=== PATIENT | female | born 2000 | race Caucasian/White ===

== ENCOUNTER 2019-08-10 19:08 | Emergency (ER) | payer OTHER ==
[~2019-08-10] VITALS: Ht 149 cm; Wt 56.7 kg
[2019-08-10] MEDS ORDERED: LACTATED RINGERS 1,000 ML IV ONE (19:33)
[2019-08-10] MEDS ORDERED: fentaNYL INJECTION 100 MCG/2 ML AMP IVP STA ×2 (19:33→20:29)
[2019-08-10 19:40] LABS: BILIRUBIN,URINE NEGATIVE (NEGATIVE); CLARITY,URINE SL CLOUDY; COLOR,URINE YELLOW; GLUCOSE, URINE (UA) NEGATIVE (NEGATIVE); KETONES,URINE NEGATIVE (NEGATIVE); LEUKOCYTE ESTERASE ,URINE NEGATIVE (NEGATIVE); NITRITE,URINE NEGATIVE (NEGATIVE); PROTEIN,URINE NEGATIVE (NEGATIVE)
[2019-08-10 19:41] LABS: BASOPHILS % (AUTO) 0 % (0-10); EOSINOPHILS # (AUTO) 0.2 10^3/uL (0.0-0.3); EOSINOPHILS % (AUTO) 2 % (0-10); HEMATOCRIT 40 % (35-52); HEMOGLOBIN 13.3 G/DL (11.5-16.0); LYMPHOCYTES % (AUTO) 50 % (12-44); MEAN CORPUSCULAR HEMOGLOBIN 32 PG (25-34); MEAN CORPUSCULAR HGB CONC 33 G/DL (32-36); MEAN CORPUSCULAR VOLUME 96 FL (80-99); MONOCYTES # (AUTO) 0.6 X 10^3 (0.0-1.0); MONOCYTES % (AUTO) 6 % (0-12); NEUTROPHILS # (AUTO) 4.2 X 10^3 (1.8-7.8); NEUTROPHILS % (AUTO) 42 % (42-75); PLATELET COUNT 291 10^3/uL (130-400); RED CELL DISTRIBUTION WIDTH 11.7 % (10.0-14.5); WHITE BLOOD COUNT 9.9 10^3/uL (4.3-11.0)
[2019-08-10 19:46] LABS: BACTERIA,URINE TRACE /HPF; SQUAMOUS EPITHELIAL CELL,UR 0-2 /HPF
[2019-08-10 19:47] LABS: AMORPHOUS SEDIMENT,UR LARGE AMOR PHOSPHATE /LPF
[2019-08-10 19:52] LABS: ALANINE AMINOTRANSFERASE 25 U/L (0-55); ALBUMIN 5.3 GM/DL (3.2-4.5); ALKALINE PHOSPHATASE 80 U/L (40-136); AMYLASE 42 U/L (25-125); BILIRUBIN,TOTAL 0.3 MG/DL (0.1-1.0); BUN/CREATININE RATIO 20; CALCIUM 10.4 MG/DL (8.5-10.1); CARBON DIOXIDE 25 MMOL/L (21-32); CHLORIDE 104 MMOL/L (98-107); CREATININE SERUM 0.75 MG/DL (0.60-1.30); GFR ESTIMATED > 60; GLUCOSE 99 MG/DL (70-105); LIPASE 29 U/L (8-78); POTASSIUM 3.8 MMOL/L (3.6-5.0); SODIUM 141 MMOL/L (135-145); TOTAL PROTEIN 8.4 GM/DL (6.4-8.2)
--- NOTE | 2019-08-10 19:56 | ED Abdominal Pain ---
General Chief Complaint: Abdominal/GI Problems Stated Complaint: RT SIDE PAIN Nursing Triage Note: Patient ambulatory to triage room with complaint of right rib pain that began today. Patient denies any recent injuries and denies any cough. Patient states the pain began suddenly and hurts worse with taking a deep breath. Sepsis Screen: No Definite Risk Source of Information: Patient Exam Limitations: No Limitations History of Present Illness Date Seen by Provider: Aug 10, 2019 Time Seen by Provider: 19:34 Initial Comments Here with report of right upper quadrant abdominal pain that started after eating dinner tonight. States it hurts when she takes a deep breath. Pain has persisted since onset. Denies recent injuries. Denies nausea or vomiting. Timing/Duration: 1-3 Hours Severity/Quality: Moderate, Severe Location: RUQ Radiation: Chest (right low chest anterior) Activities at Onset: None Modifying Factors: Worsens With Eating Associated Symptoms: No Back Pain; Chest Pain; No Fever/Chills, No Nausea/Vomiting, No Shortness of Air, No Weakness Allergies and Home Medications Allergies Coded Allergies: No Known Drug Allergies (Unverified , 08/10/19) Patient Home Medication List Home Medication List Reviewed: Yes Review of Systems Review of Systems Constitutional: see HPI; No chills, No fever EENTM: No Symptoms Reported Respiratory: Denies Cough; Other (pain with deep breathing) Cardiovascular: See HPI; Denies Edema, Denies Lightheadedness Gastrointestinal: Abdominal Pain; Denies Constipated, Denies Diarrhea, Denies Nausea, Denies Vomiting Genitourinary: No Symptoms Reported Musculoskeletal: no symptoms reported Skin: no symptoms reported Psychiatric/Neurological: No Symptoms Reported All Other Systems Reviewed Negative Unless Noted: Yes Past Wkbqtbd-Zroiqu-Truemj Hx Past Med/Social Hx: Reviewed Nursing Past Med/Soc Hx Patient Social History Alcohol Use: Denies Use Recreational Drug Use: No Smoking Status: Never a Smoker 2nd Hand Smoke Exposure: No Recent Foreign Travel: No Contact w/Someone Who Travel: No Recent Infectious Disease Expo: No Recent Hopitalizations: No Physical Abuse: No Sexual Abuse: No Mistreated: No Fear: No Immunizations Up To Date PED Vaccines UTD: Yes Seasonal Allergies Seasonal Allergies: No Past Medical History Surgeries: No Respiratory: No Cardiac: No Neurological: No Last Menstrual Period: Jul 25, 2019 Genitourinary: No Gastrointestinal: No Musculoskeletal: No Endocrine: No HEENT: No Cancer: No Psychosocial: No Integumentary: No Family Medical History Reviewed Nursing Family Hx Physical Exam Vital Signs Vital Signs - First Documented 08/10/19 19:13 Temp 37.0 Pulse 76 Resp 24 B/P (MAP) 132/95 (107) Pulse Ox 100 O2 Delivery Room Air Capillary Refill : Less Than 3 Seconds Height/Weight/BMI Height: '" Weight: lbs. oz. kg; 25.00 BMI Method: General Appearance: WD/WN, no apparent distress HEENT: PERRL/EOMI, pharynx normal Neck: full range of motion, supple Respiratory: lungs clear, normal breath sounds Cardiovascular: regular rate, rhythm, no murmur Gastrointestinal: soft; No guarding, No rebound; tenderness (right upper quadrant) Extremities: non-tender, normal inspection Back: normal inspection, no CVA tenderness, no vertebral tenderness Neurologic/Psychiatric: alert, oriented x 3 Skin: normal color, warm/dry Progress/Results/Core Measures Results/Orders Lab Results Laboratory Tests Test 08/10/19 19:20 Range/Units White Blood Count 9.9 4.3-11.0 10^3/uL Red Blood Count 4.16 L 4.35-5.85 10^6/uL Hemoglobin 13.3 11.5-16.0 G/DL Hematocrit 40 35-52 % Mean Corpuscular Volume 96 80-99 FL Mean Corpuscular Hemoglobin 32 25-34 PG Mean Corpuscular Hemoglobin Concent 33 32-36 G/DL Red Cell Distribution Width 11.7 10.0-14.5 % Platelet Count 291 130-400 10^3/uL Mean Platelet Volume 10.0 7.4-10.4 FL Neutrophils (%) (Auto) 42 42-75 % Lymphocytes (%) (Auto) 50 H 12-44 % Monocytes (%) (Auto) 6 0-12 % Eosinophils (%) (Auto) 2 0-10 % Basophils (%) (Auto) 0 0-10 % Neutrophils # (Auto) 4.2 1.8-7.8 X 10^3 Lymphocytes # (Auto) 5.0 H 1.0-4.0 X 10^3 Monocytes # (Auto) 0.6 0.0-1.0 X 10^3 Eosinophils # (Auto) 0.2 0.0-0.3 10^3/uL Basophils # (Auto) 0.0 0.0-0.1 10^3/uL Urine Color YELLOW Urine Clarity SL CLOUDY Urine pH 7.0 5-9 Urine Specific [place] 1.025 H 1.016-1.022 Urine Protein NEGATIVE NEGATIVE Urine Glucose (UA) NEGATIVE NEGATIVE Urine Ketones NEGATIVE NEGATIVE Urine Nitrite NEGATIVE NEGATIVE Urine Bilirubin NEGATIVE NEGATIVE Urine Urobilinogen 0.2 < = 1.0 MG/DL Urine Leukocyte Esterase NEGATIVE NEGATIVE Urine RBC (Auto) NEGATIVE NEGATIVE Urine RBC NONE /HPF Urine WBC NONE /HPF Urine Squamous Epithelial Cells 0-2 /HPF Urine Crystals PRESENT H /LPF Urine Amorphous Sediment LARGE GREY PHOSPHATE H /LPF Urine Bacteria TRACE /HPF Urine Casts NONE /LPF Urine Mucus SMALL H /LPF Urine Culture Indicated NO Sodium Level 141 135-145 MMOL/L Potassium Level 3.8 3.6-5.0 MMOL/L Chloride Level 104 98-107 MMOL/L Carbon Dioxide Level 25 21-32 MMOL/L Anion Gap 12 5-14 MMOL/L Blood Urea Nitrogen 15 7-18 MG/DL Creatinine 0.75 0.60-1.30 MG/DL Estimat Glomerular Filtration Rate > 60 BUN/Creatinine Ratio 20 Glucose Level 99 70-105 MG/DL Calcium Level 10.4 H 8.5-10.1 MG/DL Corrected Calcium 8.5-10.1 MG/DL Total Bilirubin 0.3 0.1-1.0 MG/DL Aspartate Amino Transf (AST/SGOT) 18 5-34 U/L Alanine Aminotransferase (ALT/SGPT) 25 0-55 U/L Alkaline Phosphatase 80 40-136 U/L C-Reactive Protein High Sensitivity 0.05 0.00-0.50 MG/DL Total Protein 8.4 H 6.4-8.2 GM/DL Albumin 5.3 H 3.2-4.5 GM/DL Amylase Level 42 25-125 U/L Lipase 29 8-78 U/L My Orders Orders - SWATI TRINH MD Fentanyl Injection (Sublimaze Injection (08/10/19 19:33) Ed Iv/Invasive Line Start (08/10/19 19:33) Lactated Ringers (Lr 1000 Ml Iv Solution (08/10/19 19:33) Chest Pa/Lat (2 View) (08/10/19 19:33) Ct Abdomen/Pelvis W (08/10/19 19:33) Amylase (08/10/19 19:33) Cbc With Automated Diff (08/10/19 19:33) Comprehensive Metabolic Panel (08/10/19 19:33) Hs C Reactive Protein (08/10/19 19:33) Lipase (08/10/19 19:33) Ua Culture If Indicated (08/10/19 19:33) Urine Bedside (08/10/19 19:33) Iohexol Injection (Omnipaque 350 Mg/Ml 1 (08/10/19 20:15) Received Contrast (Hold Metformin- Contr (08/10/19 20:15) Ns (Ivpb) (Sodium Chloride 0.9% Ivpb Bag (08/10/19:15) Fentanyl Injection (Sublimaze Injection (08/10/19 20:29) Ketorolac Injection (Toradol Injection) (08/10/19 20:29) Medications Given in ED Current Medications Medications Dose Ordered Sig/Kvng Route Start Time Stop Time Status Last Admin Dose Admin Iohexol 100 ml ONCE ONCE IV 08/10/19 20:15 08/10/19 20:17 DC 08/10/19 20:16 100 ML Lactated Ringer's 1,000 ml @ 0 mls/hr Q0M ONCE IV 08/10/19 19:33 08/10/19 19:37 DC 08/10/19 19:40 999 MLS/HR Sodium Chloride 100 ml ONCE ONCE IV 08/10/19 20:15 08/10/19 20:17 DC 08/10/19 20:16 100 ML Vital Signs/I&O 08/10/19 19:13 Temp 37.0 Pulse 76 Resp 24 B/P (MAP) 132/95 (107) Pulse Ox 100 O2 Delivery Room Air Blood Pressure Mean: 107 Progress Progress Note : Progress Note Seen and evaluated. IV, labs, UA, LR 1 L bolus, UCG ordered. CT abdomen pelvis ordered due to right upper quadrant abdominal pain. Fentanyl 50 g IV. Monitor p atient. 2055: Patient had continued pain. Repeat fentanyl 50 g IV and Toradol 30 mg IV ordered and has been given. Patient's pain is doing better now. No acute findings for labs or radiology. Monitor patient. 2127: Overall feeling much better and pain is resolved. No acute findings on labs or radiological data. May be related to poor gallbladder function, gastritis or other etiology. We did discuss follow-up. She does follow up at the health clinic. I will give her the name of the surgeon gas operations superintendent for follow-up as well. Discharged home with return precautions. Patient verbalize understanding instructions and agreement with plan. Diagnostic Imaging Diagonstic Imaging: Xray Plain Films/CT/US/NM/MRI: chest Comments [facility], [place] NAME: [facility] REC#: [id number] PT STATUS: REG ER : 2000 PHYSICIAN: SWATI TRINH MD ADMIT DATE: 08/10/19/ER Draft Date of Exam:08/10/19 CHEST PA/LAT (2 VIEW) INDICATION: Low anterior rib pain PA and lateral views of the chest obtained at 0820 p.m. Heart and mediastinal silhouette are normal in appearance. The lungs show no focal infiltrate. There is no pneumothorax or pleural fluid. There is no overt bony abnormality seen. IMPRESSION: Negative chest. Dictated on workstation # [id number] Dict: 08/10/192029 Trans: 08/10/192032 [facility] [id number] Interpreted by: BISI SANABRIA MD Electronically signed by: Diagonstic Imaging: CT Plain Films/CT/US/NM/MRI: abdomen, pelvis Comments [facility], [place] NAME: [facility] REC#: [id number] PT STATUS: REG ER : 2000 PHYSICIAN: SWATI TRINH MD ADMIT DATE: 08/10/19/ER Draft Date of Exam:08/10/19 CT ABDOMEN/PELVIS W INDICATION: Right-sided abdominal pain and rib pain. TECHNIQUE: Multiple contiguous axial images were obtained through the abdomen and pelvis after administration of intravenous contrast. Auto Exposure Controls were utilized during the CT exam to meet ALARA standards for radiation dose reduction. There is no prior study for comparison. The visualized portions of the lung bases appear clear. There were no pleural fluid collections. There is no free intraperitoneal air. The liver shows no focal mass lesion. There is a focal area of slight enhancement of the right lobe of the liver anteriorly which is probably a perfusion artifact. Gallbladder appears normal. The spleen, adrenals, and pancreas appear normal. The kidneys bilaterally appear unremarkable. There is no retroperitoneal mass or adenopathy. There is no ascites or abnormal fluid collection. There is no pelvic mass or free fluid. Bony windows demonstrate no overt bony abnormality. IMPRESSION: No definite acute finding in the abdomen or pelvis. No abnormal fluid collection or abscess. There is a focal area of faint enhancement of the periphery of the right lobe of the liver anteriorly which most likely represents perfusion artifact. There is no other abnormal finding. Dictated on workstation # [id number] Dict: 08/10/192021 Trans: 08/10/192029 [facility] [id number] Interpreted by: BISI SANABRIA MD Electronically signed by: Departure Impression Primary Impression: Right upper quadrant abdominal pain Disposition: 01 HOME, SELF-CARE Condition: Improved Departure-Patient Inst. Decision time for Depature: 21:29 Referrals: NO,LOCAL PHYSICIAN (PCP) Primary Care Physician DEANNE SANDERSON DO Patient Instructions: Acute Abdomen (Belly Pain), Adult (DC) Add. Discharge Instructions: All discharge instructions reviewed with patient and/or family. Voiced understanding. You may take Tylenol/acetaminophen 1000 mg every 8 hours as needed for fever or pain. You may take ibuprofen 400 mg every 8 hours as needed for fever or pain. You may take [id number] Pepcid (famotidine) 20 mg once or twice daily for the next several days and then daily thereafter as needed for stomach upset. Follow-up with the surgeon listed or of your choice for recheck and further evaluation including possible upper endoscopy or further gallbladder workup. Return for worse pain, fever, vomiting, weakness, breathing problems or other concerns as needed. Clear liquid or light diet for the next few days and then advance as tolerated. SWATI TRINH MD Aug 10, 2019 19:56
[2019-08-10] MEDS ORDERED: NS 100 ML (IVPB) BAG IV ONE (20:15)
[2019-08-10] MEDS ORDERED: IOHEXOL 350 MG/ML 100 ML (OMNIPAQUE 350) VIAL IV ONE (20:15)
[2019-08-10] MEDS ORDERED: HOLD METFORMIN - RECEIVED CONTRAST 20 ML VIAL IV SCH (20:15)
[2019-08-10] MEDS ORDERED: KETOROLAC 30 MG/ML VIAL IVP STA (20:29)
--- NOTE | 2019-08-10 20:30 | Diagnostic Imaging Report ---
INDICATION: Right-sided abdominal pain and rib pain. TECHNIQUE: Multiple contiguous axial images were obtained through the abdomen and pelvis after administration of intravenous contrast. Auto Exposure Controls were utilized during the CT exam to meet ALARA standards for radiation dose reduction. There is no prior study for comparison. The visualized portions of the lung bases appear clear. There were no pleural fluid collections. There is no free intraperitoneal air. The liver shows no focal mass lesion. There is a focal area of slight enhancement of the right lobe of the liver anteriorly which is probably a perfusion artifact. Gallbladder appears normal. The spleen, adrenals, and pancreas appear normal. The kidneys bilaterally appear unremarkable. There is no retroperitoneal mass or adenopathy. There is no ascites or abnormal fluid collection. There is no pelvic mass or free fluid. Bony windows demonstrate no overt bony abnormality. IMPRESSION: No definite acute finding in the abdomen or pelvis. No abnormal fluid collection or abscess. There is a focal area of faint enhancement of the periphery of the right lobe of the liver anteriorly which most likely represents perfusion artifact. There is no other abnormal finding. Dictated by: Dictated on workstation # [id number]
--- NOTE | 2019-08-10 20:33 | Diagnostic Imaging Report ---
INDICATION: Low anterior rib pain PA and lateral views of the chest obtained at 0820 p.m. Heart and mediastinal silhouette are normal in appearance. The lungs show no focal infiltrate. There is no pneumothorax or pleural fluid. There is no overt bony abnormality seen. IMPRESSION: Negative chest. Dictated by: Dictated on workstation # [id number]
[2019-08-10 21:59] VITALS: BP 119/63
== END 2019-08-10 21:59 | disposition home or self-care (01) ==
LOC: EDUNIT# 19:08 → ER 19:10
DX: R10.11 Right upper quadrant pain (principal)
CPT/HCPCS: 36415; 71046; 74177; 80053; 81000; 82150; 83690; 84703; 85025; 86141; 96361; 96374; 96375; 96376

== ENCOUNTER → 2019-08-28 | Outpatient (CLI) | payer BC ==
--- NOTE | 2019-08-28 08:01 | Diagnostic Imaging Report ---
PROCEDURE: US Gallbladder. TECHNIQUE: Multiple real-time grayscale images were obtained over the right upper quadrant in various projections. INDICATION: Pain. FINDINGS: Liver parenchyma appeared normal. Portal vein patent and hepatopetal. The gallbladder appeared normal. No intra or extrahepatic bile duct dilatation. The unobstructed right kidney is normal in size, cortical thickness and echotexture. The visualized portions of the pancreas unremarkable. IMPRESSION: Normal right upper quadrant ultrasound. Dictated by: Dictated on workstation # [id number]
== END ==
LOC: RAD 06:42
PROVIDERS: ATTEND Surgery
DX: R10.11 Right upper quadrant pain (principal)
CPT/HCPCS: 76705

== ENCOUNTER → 2019-09-07 | Outpatient (CLI) | payer BC ==
[~2019-09-07] MED LIST: CATHETER FLUSH 10 ML SYR IV PRN
--- NOTE | 2019-09-07 12:40 | Diagnostic Imaging Report ---
INDICATION: Abdominal pain. TECHNIQUE: The patient was administered 5.4 mCi of technetium 99m Choletec intravenously and imaging over the abdomen was performed. At 30 minutes, the patient ingested 8 ounces of Ensure. A gallbladder ejection fraction was calculated. FINDINGS: Homogeneous uptake of activity by the liver is seen. There is excretion of activity into the common duct. The gallbladder is somewhat obscured by small bowel. The ejection fraction is approximately 48%. Activity is seen within the small bowel. IMPRESSION: Normal HIDA scan and gallbladder ejection fraction. Dictated by: Dictated on workstation # [id number]
== END ==
LOC: CARD 10:07
PROVIDERS: ATTEND Surgery
DX: R10.11 Right upper quadrant pain (principal)
CPT/HCPCS: 78227

== ENCOUNTER 2020-09-26 15:16 | Inpatient (IN) | payer BC ==
[~2020-09-26] VITALS: Ht 149.9 cm; Wt 67.6 kg
[2020-09-26] VITALS (28 sets, daily range): BP systolic 110–164; BP diastolic 58–91
[2020-09-26] MEDS ORDERED: D5 LR IV SOLUTION 1,000 ML IV ONE (15:52)
[2020-09-26] MEDS ORDERED: OXYTOCIN PRE-MIX DRIP 500 ML IV ONE (17:49)
[2020-09-26] MEDS ORDERED: OXYTOCIN PRE-MIX DRIP 500 ML IV SCH ×2 (18:00→18:30)
[2020-09-26] MEDS ORDERED: D5 LR IV SOLUTION 1,000 ML IV SCH ×2 (18:00→18:30)
[2020-09-26] MEDS ORDERED: fentaNYL 2 mcg/ml BUPIVA 0.125 100 ML ONE (18:16)
[2020-09-26] MEDS ORDERED: IBUP-1780 PO (18:27)
[2020-09-26] MEDS ORDERED: OXYC1TAB87 PO (18:27)
[2020-09-26] MEDS ORDERED: DOCU-143 PO (18:27)
--- NOTE | 2020-09-26 18:27 | Discharge Inst-Surgical ---
Discharge Inst-Surgical Depart Medication/Instructions New, Converted or Re-Newed RX: RX on Chart Consults/Follow Up Patient Instructions: DIRECTED Orders & Referrals Follow Up Appt: Call to make follow up appt. for patient in 4 weeks. Activity Per routine post vaginal delivery instructions. Please call in RX to patient pharmacy. Diet as tolerated Patient may shower or tub bathe as desired. Activity Activity as Tolerated: No Diet Discharge Diet: No Restrictions WINSTON GALICIA MD Sep 26, 2020 18:27
[2020-09-26 18:42] LABS: BASOPHILS # (AUTO) 0.1 10^3/uL (0.0-0.1); BASOPHILS % (AUTO) 1 % (0-10); EOSINOPHILS # (AUTO) 0.1 10^3/uL (0.0-0.3); EOSINOPHILS % (AUTO) 1 % (0-10); HEMATOCRIT 35 % (35-52); HEMOGLOBIN 11.4 g/dL (11.5-16.0); LYMPHOCYTES # (AUTO) 2.6 10^3/uL (1.0-4.0); LYMPHOCYTES % (AUTO) 24 % (12-44); MEAN CORPUSCULAR HEMOGLOBIN 31 pg (25-34); MEAN CORPUSCULAR HGB CONC 33 g/dL (32-36); MEAN CORPUSCULAR VOLUME 95 fL (80-99); MEAN PLATELET VOLUME 11.2 fL (9.0-12.2); MONOCYTES # (AUTO) 0.8 10^3/uL (0.0-1.0); MONOCYTES % (AUTO) 7 % (0-12); NEUTROPHILS # (AUTO) 7.3 10^3/uL (1.8-7.8); NEUTROPHILS % (AUTO) 66 % (42-75); PLATELET COUNT 262 10^3/uL (130-400); WHITE BLOOD COUNT 11.1 10^3/uL (4.3-11.0)
[2020-09-26] MEDS ORDERED: LIDOCAINE/EPI 2% 1:200,00 (XYLOCAINE) 20 ML VIAL ONE (19:03)
[2020-09-26] MEDS ORDERED: BUPIVACAINE 0.25% 30 ML (SENSORCAINE) VIAL ONE (19:23)
[2020-09-26] MEDS ORDERED: LIDOCAINE PF 2% 5 ML (XYLOCAINE) VIAL ONE (19:23)
[2020-09-26] MEDS ORDERED: fentaNYL INJ 100 MCG/2 ML AMP ONE (19:23)
[2020-09-26] MEDS ORDERED: LACTATED RINGERS 1,000 ML IV ONE (22:15)
[2020-09-26] MEDS ORDERED: fentaNYL 2 mcg/ml BUPIVA 0.125 100 ML IV SCH (22:15)
[2020-09-27 00:10] VITALS: BP 111/61
[2020-09-27] MEDS ORDERED: BENZOCAINE/MENTHOL (DERMOPLAST) 56 ML CAN TP PRN (01:00)
[2020-09-27] MEDS ORDERED: ONDANSETRON 4 MG/2 ML (SDV) Z0FRAN IVP PRN (01:00)
[2020-09-27] MEDS ORDERED: TETANUS,DIPTH,PERTUSS P/F (BOOSTRIX) 0.5 ML VIAL IM ONE (01:00)
[2020-09-27] MEDS ORDERED: OXYTOCIN PRE-MIX DRIP 500 ML IV SCH (01:00)
[2020-09-27] MEDS ORDERED: KETOROLAC 30 MG/ML VIAL IVP SCH (01:00)
[2020-09-27] MEDS ORDERED: MEASLES,MUMPS,RUBELLA 1 EA INJ SC ONE (01:00)
[2020-09-27] MEDS ORDERED: oxyCODONE/APAP 5/325MG (PERCOCET 5) TABLET PO PRN (01:00)
--- NOTE | 2020-09-27 04:06 | OPERATIVE REPORT ---
DATE OF SERVICE: 09/26/2020 DELIVERY NOTE The patient delivered at 36 and 3/7 weeks' gestation by spontaneous vaginal delivery a viable male infant with Apgars of 8 and 9 at 1 and 5 minutes respectively, weight of 6 pounds 7 ounces, time of 2055 and cord blood pH is pending. The was delivered over midline episiotomy that was performed to shorten the second stage of labor due to suppressed heart rate down under the 70s and 80s. The delivery was accomplished fairly promptly after performing episiotomy. The was bulb suctioned on delivery of the head and again on completion of delivery. The was stimulated and dried and when the cord was pulseless, it was doubly clamped. The father cut the cord, the baby was passed to mom's abdomen. The baby recovered nicely after delivery. Cord bloods were obtained. The placenta delivered fairly promptly spontaneously [place]. It was normal with 3-vessel cord. The placenta was sent to pathology for permanent section secondary to the prematurity. The cervix, vagina, rectum, and perineum were examined and found intact, except for the midline episiotomy that was repaired with a single suture of 3-0 Vicryl Rapide in the usual manner without difficulty, had good hemostasis and good reapproximation. The patient tolerated the delivery and repair well. The repair was accomplished under the epidural augmented with perineal and anesthesia augmented with local. Sponge and needle counts were correct on completion of delivery and repair. Estimated blood loss was around 150 mL. The patient tolerated procedure well and remained in the LDR for recovery. The baby remained with the mom. Job ID: [id number] DocumentID: [id number] Dictated Date: 09/26/2020 21:25:17 Tube Room Supervisor Date: 09/27/2020 04:06:02 Dictated By: WINSTON GALICIA MD MTDD
[2020-09-27 04:55] VITALS: BP 103/63
--- NOTE | 2020-09-27 08:01 | Progress Note ---
Standard Progress Note Progress Notes/Assess & Plan Date Seen by a Provider: Sep 27, 2020 Time Seen by a Provider: 08:00 Progress/Assessment & Plan This patient is without complaint. She is ambulating, voiding, tolerating oral intake well and has good pain control. Vital Signs Date Time Temp Pulse Resp B/P (MAP) Pulse Ox O2 Delivery O2 Flow Rate FiO2 09/27/20 04:55 36.9 100 20 103/63 (76) 97 Room Air 09/27/20 00:10 98 20 111/61 (78) Room Air 09/26/20 23:40 114 20 114/58 (76) Room Air 09/26/20 23:10 117 20 136/74 (94) Room Air 09/26/20 22:45 110 20 122/72 (89) Room Air 09/26/20 22:15 118 20 118/82 (94) Room Air 09/26/20 22:00 116 20 110/75 (87) Room Air 09/26/20 21:45 37.4 122 20 127/62 (83) Room Air 09/26/20 21:30 37.5 126 20 123/74 (90) Room Air 09/26/20 21:15 37.5 122 20 150/62 (91) Room Air 09/26/20 20:56 141 20 160/91 (114) Room Air 09/26/20 20:45 131 20 162/89 (113) Room Air 09/26/20 20:30 113 20 137/72 (93) Room Air 09/26/20 20:15 139 20 164/69 (100) 100 Room Air 09/26/20 20:00 95 20 128/87 (101) 100 Room Air 09/26/20 19:45 91 20 111/67 (82) 99 Room Air 09/26/20 19:41 90 20 122/79 (93) 100 Room Air 09/26/20 19:38 91 20 122/77 (92) 99 Room Air 09/26/20 19:35 81 20 132/78 (96) 100 Room Air 09/26/20 19:32 90 20 126/91 (103) 100 Room Air 09/26/20 19:30 88 20 129/73 (91) 99 Room Air 09/26/20 19:26 82 20 125/73 (90) 100 Room Air 09/26/20 19:23 87 20 126/73 (90) 100 Room Air 09/26/20 19:20 96 20 134/73 (93) 100 Room Air 09/26/20 19:15 84 20 123/69 (87) 99 Room Air 09/26/20 18:47 86 20 124/64 (84) Room Air 09/26/20 18:32 75 20 134/82 (99) Room Air 09/26/20 18:16 75 18 132/77 (95) Room Air 09/26/20 18:01 96 18 128/85 (99) 97 Room Air 09/26/20 15:45 36.6 85 16 119/82 (94) 98 Room Air Vital signs are stable. Patient is afebrile. Fundus is firm below the umbilicus and nontender. Extremities show no clubbing or cyanosis. There is no Homans' sign. Assessment and plan day 1 status post spontaneous vaginal delivery doing well. Plan is for routine convalescent care Final Diagnosis 6-week spontaneous vaginal delivery WINSTON GALICIA MD Sep 27, 2020 08:01
--- NOTE | 2020-09-27 08:21 | Anesthesia-Regional Post-Op ---
Regional Patient Condition Mental Status: Alert, Oriented x3 Circulation: Same as Pre-Op Headache: Absent Sensation: Full Recovery Motor Block: Absent Post Op Complications Complications None Follow Up Care/Instructions Patient Instructions None needed. Anesthesia/Patient Condition Patient is doing well, no complaints, stable vital signs, no apparent adverse anesthesia problems. QUENTIN HERNANDEZ DO Sep 27, 2020 08:21
[2020-09-27] MEDS ORDERED: IBUPROFEN 800 MG (MOTRIN) TAB PO ONE (08:25)
[2020-09-27 08:30] VITALS: BP 112/73
[2020-09-27] MEDS ORDERED: WITCH HAZEL(TUCKS) 40 EA JAR TOP PRN (08:30)
[2020-09-27] MEDS: DOCUSATE SODIUM 100 MG (COLACE) CAP PO SCH ×2 (08:38→20:20)
[2020-09-27] MEDS: IBUPROFEN 800 MG (MOTRIN) TAB PO SCH ×3 (08:49→20:20)
[2020-09-27 13:00] VITALS: BP 97/54
[2020-09-27 16:35] VITALS: BP 107/67
[2020-09-27 20:18] VITALS: BP 106/69
[2020-09-28 02:53] VITALS: BP 109/57
[2020-09-28] MEDS: IBUPROFEN 800 MG (MOTRIN) TAB PO SCH ×3 (02:54→14:51)
[2020-09-28 09:00] VITALS: BP 112/74
[2020-09-28] MEDS: DOCUSATE SODIUM 100 MG (COLACE) CAP PO SCH (09:32)
[2020-09-28 14:30] VITALS: BP 120/65
[2020-09-28 15:00] VITALS: BP 120/65
[2020-10-02] MEDS ORDERED: IBUPROFEN 800 MG (MOTRIN) TAB PO SCH (06:00)
== END 2020-09-28 15:00 | disposition home or self-care (01) | DRG 807 ==
LOC: WSo 15:16 → LDRP 15:17 → WSo 16:47 → LDRP 09-27 07:06
PROVIDERS: ADMIT Obstetrics & Gynecology; ATTEND Obstetrics & Gynecology
PROC: 10E0XZZ Delivery of Products of Conception, External Approach (ICD-10-PCS; principal; 2020-09-26)
PROC: 0W8NXZZ Division of Female Perineum, External Approach (ICD-10-PCS; 2020-09-26)
DX: O60.14X0 Preterm labor third trimester with preterm delivery third trimester, not applicable or unspecified (principal); Z37.0 Single live birth; Z3A.36 36 weeks gestation of pregnancy
CPT/HCPCS: 36415; 85025; 86850; 86900; 86901; 99212